=== PATIENT | female | born 1995 | race Caucasian/White ===

== ENCOUNTER → 2020-07-06 | Outpatient (CLI) | payer BC ==
[~2020-07-06] MED LIST: COLACE 100MG C100 MG PO
[2020-07-06 18:05] LABS: BUN/CREATININE RATIO 18 (0-10)
== END ==
LOC: LAB 17:03
PROVIDERS: Nurse Practitioner Family
DX: R63.5 Abnormal weight gain (principal); R53.83 Other fatigue
CPT/HCPCS: 36415; 80053; 82652; 83036; 84439; 84443

== ENCOUNTER → 2020-09-10 | Outpatient (CLI) | payer BC | LOC: US 13:05 | DX: Z08 Encounter for follow-up examination after completed treatment for malignant neoplasm (principal); Z80.3 Family history of malignant neoplasm of breast | CPT/HCPCS: 76641-LT; 76641-RT ==

== ENCOUNTER → 2020-12-20 | Outpatient (CLI) | payer BC | LOC: RAD 17:16 | DX: R06.02 Shortness of breath (principal) | CPT/HCPCS: 71046 ==

== ENCOUNTER → 2021-03-25 | Outpatient (CLI) | payer BC ==
[2021-03-26 16:11] LABS: IMMUNOGLOBULIN A, QN, SERUM 199 mg/dL (87-352); T-TRANSGLUTAMINASE (TTG) IGA <2 U/mL (0-3)
== END ==
LOC: LAB
PROVIDERS: Allergy & Immunology
DX: J30.1 Allergic rhinitis due to pollen (principal); J30.89 Other allergic rhinitis; H10.45 Other chronic allergic conjunctivitis; R06.00 Dyspnea, unspecified; R19.8 Other specified symptoms and signs involving the digestive system and abdomen
CPT/HCPCS: 82784

== ENCOUNTER 2021-08-12 17:06 | Emergency (ER) | payer SELFPAY | END 2021-08-12 19:48 | disposition left against medical advice (07) | LOC: ER1 17:06 | DX: Z53.21 Procedure and treatment not carried out due to patient leaving prior to being seen by health care provider (principal) ==

== ENCOUNTER 2021-08-12 19:54 | Outpatient (CLI) | payer BC | END 2021-08-12 21:45 | disposition home or self-care (01) | LOC: GENOP 19:54 | DX: Z53.9 Procedure and treatment not carried out, unspecified reason (principal) | CPT/HCPCS: 96360; 96374; J2405; U0002 ==

== ENCOUNTER 2021-10-17 05:51 | Observation (INO) | payer BC ==
[~2021-10-17] VITALS: Ht 170.2 cm; Wt 104.3 kg
[~2021-10-17 05:51] MED LIST changes: +ADULT LOW DOSE81 MG PO; +ATENOLOL25 MG PO; +ONDANSETRON ODT8 MG PO; +PEPCID20 MG PO; +ZOLOFT25 MG PO
[2021-10-18] MEDS ORDERED: HYDROCODON-ACE1 EAC2 PO (08:30)
== END 2021-10-18 10:29 | disposition home or self-care (01) ==
LOC: OR 05:51 → MED SURG 4 08:37
PROVIDERS: ADMIT Surgery
DX: K80.64 Calculus of gallbladder and bile duct with chronic cholecystitis without obstruction (principal); I10 Essential (primary) hypertension; R00.0 Tachycardia, unspecified; Z88.8 Allergy status to other drugs, medicaments and biological substances; Z79.82 Long term (current) use of aspirin; Z20.822 Contact with and (suspected) exposure to COVID-19
CPT/HCPCS: 96374; C1729; G0378; J0690; J1170; J2001; J2405; J2550; J2704; J2710; J3010; J7030; J7120

== ENCOUNTER → 2022-01-13 | Outpatient (CLI) | payer BC ==
[~2022-01-13] MED LIST changes: +HYDROCODON-ACE1 EAC2 PO
== END ==
LOC: LAB 17:04
DX: U07.1 COVID-19 (principal)
CPT/HCPCS: U0002

== ENCOUNTER 2022-02-04 20:24 | Outpatient (CLI) | payer BC ==
[2022-02-04 22:28] LABS: BUN/CREATININE RATIO 15 (0-10)
== END 2022-02-04 23:25 | disposition home or self-care (01) ==
LOC: GENOP 20:24
PROVIDERS: Obstetrics & Gynecology
DX: O99.891 Other specified diseases and conditions complicating pregnancy (principal); R03.0 Elevated blood-pressure reading, without diagnosis of hypertension; R51.9 Headache, unspecified
CPT/HCPCS: 80053; 81001; 82570; 84156; G0463

== ENCOUNTER 2022-02-07 10:40 | Outpatient (CLI) | payer BC ==
[2022-02-07 11:25] LABS: URINE TOTAL PROTEIN 7 mg/dl
== END 2022-02-07 13:21 | disposition home or self-care (01) ==
LOC: GENOP 10:40
PROVIDERS: Obstetrics & Gynecology
DX: O10.913 Unspecified pre-existing hypertension complicating pregnancy, third trimester (principal); O24.410 Gestational diabetes mellitus in pregnancy, diet controlled; O99.891 Other specified diseases and conditions complicating pregnancy; F41.9 Anxiety disorder, unspecified; Z3A.10 10 weeks gestation of pregnancy; Z79.899 Other long term (current) drug therapy; Z3A.32 32 weeks gestation of pregnancy
CPT/HCPCS: 59025; 84156

== ENCOUNTER 2022-02-10 16:47 | Inpatient (IN) | payer BC ==
[~2022-02-10] VITALS: Ht 170.2 cm; Wt 106.1 kg
[2022-02-10 17:41] LABS: HEMOGLOBIN 11.9 gm/dl (12.3-15.3); RED BLOOD COUNT 3.98 M/UL (4.00-5.10); WHITE BLOOD COUNT 8.2 K/UL (4.5-11.0)
[2022-02-11] MEDS ORDERED: PROTONIX40 MG PO (03:20)
[2022-02-11] MEDS ORDERED: CEPHALEXIN500 MG PO (08:16)
[2022-02-11] MEDS ORDERED: COLACE 100MG C100 MG PO (21:46)
[2022-02-11] MEDS ORDERED: HYDROCODON-ACE1 EAC4 PO (21:46)
[2022-02-11] MEDS ORDERED: IBUPROFEN800 MG PO (21:46)
[2022-02-12 04:55] LABS: HEMOGLOBIN 10.7 gm/dl (12.3-15.3)
== END 2022-02-13 12:36 | disposition home or self-care (01) | DRG 806 ==
LOC: GENOP 16:47 → OB 17:30
PROVIDERS: ADMIT Obstetrics & Gynecology
PROC: 3E0234Z Introduction of Serum, Toxoid and Vaccine into Muscle, Percutaneous Approach (ICD-10-PCS; 2022-02-10)
PROC: 4A1HXCZ Monitoring of Products of Conception, Cardiac Rate, External Approach (ICD-10-PCS; 2022-02-10)
PROC: 10E0XZZ Delivery of Products of Conception, External Approach (ICD-10-PCS; principal; 2022-02-11)
PROC: 3E033VJ Introduction of Other Hormone into Peripheral Vein, Percutaneous Approach (ICD-10-PCS; 2022-02-11)
PROC: 10H07YZ Insertion of Other Device into Products of Conception, Via Natural or Artificial Opening (ICD-10-PCS; 2022-02-11)
PROC: 10907ZC Drainage of Amniotic Fluid, Therapeutic from Products of Conception, Via Natural or Artificial Opening (ICD-10-PCS; 2022-02-11)
DX: O24.420 Gestational diabetes mellitus in childbirth, diet controlled (principal); O10.92 Unspecified pre-existing hypertension complicating childbirth; Z37.0 Single live birth; Z20.822 Contact with and (suspected) exposure to COVID-19; O99.344 Other mental disorders complicating childbirth; F32.A Depression, unspecified; F41.9 Anxiety disorder, unspecified; Z3A.36 36 weeks gestation of pregnancy; Z88.8 Allergy status to other drugs, medicaments and biological substances; Z82.49 Family history of ischemic heart disease and other diseases of the circulatory system; Z82.0 Family history of epilepsy and other diseases of the nervous system; Z80.41 Family history of malignant neoplasm of ovary; Z83.3 Family history of diabetes mellitus; Z81.8 Family history of other mental and behavioral disorders; Z84.89 Family history of other specified conditions; Z80.3 Family history of malignant neoplasm of breast; Z23 Encounter for immunization
CPT/HCPCS: 36415; 81001; 82800; 82962; 85014; 85018; 85025; 90715; C9113; J0595; J2405; J2590